=== PATIENT | female | born 1970 | race Caucasian/White ===

== ENCOUNTER 2023-03-17 09:01 | Outpatient (AMB) | payer OTHER, SELFPAY ==
--- NOTE | 2023-03-17 09:07 | MHC.OFFVIS ---
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 Patient reports history of hip and back pain for over a year and was seen by a chiropractor. She was also seen by PT who told her she had a twisted spine. States dislocated her knee as a child. Finds it difficult with kneeling or going down stairs. She feels her pain is beneath her kneecap. Her knee has locked in a bent position multiple times and is unable to straighten her leg or bear weight. Denies numbness or tingling. She has done physical therapy in the past which aggravated her pain. She has had injections in the past as well. The most recent injection gave her minimal relief. The patient has tried Tylenol and anti-inflammatory medicines which gave her only mild relief. She also reports intermittent low back pain which radiates down the posterior aspect of her right hip. She has recently returned to light exercise which has given her mild relief. 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 Physical Exam Vital Signs: BMI result Body Mass Index 34.8 Const Other: Well-nourished well-developed very friendly female awake alert and oriented x3 in no acute distress Extrem Other: Bilateral lower extremity examination shows good capillary refill, no skin lesions noted, normal sensation light touch Right knee examination shows a minimal effusion, minimal crepitus with range of motion, tenderness along her medial joint line, positive Alma's test, no instability Right hip examination shows full range of motion when compared to her left hip, mild tenderness to palpation over her bursa, no overlying skin lesions Low back examination shows right-sided paraspinal muscle tenderness, minimal discomfort with range of motion, negative straight leg raise test bilaterally Results Reviewed Results Reviewed: X-rays of the patient's right knee taken today show mild diffuse joint space narrowing, no acute bony abnormalities X-rays of the patient's lumbar spine taken today show mild diffuse degenerative disc disease, no acute bony abnormalities X-rays of the patient's right hip taken today show minimal diffuse joint space narrowing, no acute bony abnormalities Assessment & Plan Assessment & Plan (1) Right hip pain: Code(s): M25.551 - Pain in right hip (2) Right knee pain: Code(s): M25.561 - Pain in right knee Plan: Ms. Peraza presents with progressively worsening right knee pain and mechanical symptoms most likely due to a tear of her medial meniscus. Thus, I will send her for an MRI of her right knee for further evaluation. If she does have a significant meniscus tear I will recommend arthroscopic surgery to optimize her future functional level. The patient also has low back pain most likely due to degenerative disc disease as well as right hip pain due to greater trochanteric bursitis. At this point the patient's back and hip pains are tolerable to her. She will continue to exercise as tolerated. She will contact me prior to her follow-up appointment should her symptoms worsen in any way. I spent 22 minutes in reviewing the patient's records and imaging studies, seeing the patient and documenting in the medical record. (3) Low back pain: Code(s): M54.50 - Low back pain, unspecified Orders: Orders XR knee RT 3V Today M25.561 - Pain in right knee XR hip RT min 2V Today M25.551 - Pain in right hip XR lumbar spine 2-3V Today M54.50 - Low back pain, unspecified Coding Level of Care Code New Pt Level 2 (67612) Diagnoses Right hip pain M25.551 Right knee pain M25.561 Low back pain M54.50
[2023-03-17 09:20] VITALS: BMI 34.8
== END 2023-03-17 10:04 | disposition home or self-care (01) ==
PROVIDERS: Visit Provider Orthopaedic Surgery
DX: M25.551 Pain in right hip (principal); M25.561 Pain in right knee; M54.50 Low back pain, unspecified
CPT/HCPCS: 99202

== ENCOUNTER 2023-03-17 09:25 | Outpatient (REF) | payer OTHER, SELFPAY ==
--- NOTE | ~2023-03-17 | XR_ITS ---
EXAMINATION: XR HIP, RIGHT CLINICAL INFORMATION: Pain in right hip COMPARISON: None available. TECHNIQUE: Two views of the right hip. FINDINGS: No fracture. Alignment is anatomic. Hip joint space is maintained. Soft tissues are unremarkable. Incidental note of pelvic phleboliths. XR/XR hip RT min 2V IMPRESSION: Normal right hip.
--- NOTE | ~2023-03-17 | XR_ITS ---
EXAMINATION: XR KNEE, RIGHT CLINICAL INFORMATION: Right knee pain COMPARISON: None available. TECHNIQUE: Three views of the right knee. FINDINGS: No evidence for acute fracture or dislocation. There are prominent spurring changes of the femoral condyles and the tibial plateau. There is focally severe narrowing of the lateral patellofemoral joint space with prominent lateral patellar spurring. There are calcifications projecting near the tibial spines and near the lateral femoral condyle which may reflect loose bodies. No significant joint effusion. XR/XR knee RT 3V IMPRESSION: 1. No acute fracture or dislocation. 2. Degenerative changes as described. 3. Findings suggestive of loose bodies. No significant joint effusion. MRI examination may be helpful toward further clarification.
--- NOTE | ~2023-03-17 | XR_ITS ---
EXAMINATION: XR LUMBOSACRAL SPINE CLINICAL INFORMATION: Low back pain COMPARISON: None available. TECHNIQUE: Two views of the lumbosacral spine. FINDINGS: No acute lumbar compression fractures seen. Pedicles and transverse processes intact. Sacrum grossly unremarkable. Slight anterolisthesis noted L4-L5. There is slight disc space narrowing at L4-L5. Mild facet arthrosis observed. Small spondylitic changes at L2 and at lower thoracic levels. XR/XR lumbar spine 2-3V IMPRESSION: 1. No acute compression fracture. Slight disc space narrowing L4-L5. Slight anterolisthesis L4-L5. 2. Mild facet arthrosis.
== END 2023-03-17 09:26 | disposition home or self-care (01) ==
LOC: HO.HOSX 09:25
PROVIDERS: Visit Provider Orthopaedic Surgery
DX: M25.551 Pain in right hip (principal); M25.561 Pain in right knee; M54.50 Low back pain, unspecified
CPT/HCPCS: 72100; 73502; 73562

== ENCOUNTER 2023-06-18 09:46 | Outpatient (AMB) | payer OTHER, SELFPAY ==
--- NOTE | 2023-06-18 09:47 | MHC.OFFVIS ---
Intake Intake Visit Reasons: OV-right knee pain-follow up Intake Note: This is a 52 year old female who presents for follow up for her right knee and giving way. Patient states that her symptoms have gotten worse over the last year in spite of continued non operative treatments. She has done physical therapy exercises which aggravated her pain. She has also tried Tylenol and anti-inflammatory medicines which gave her minimal relief. She has had injections in the past which gave her no relief. She has been wearing a knee brace which was given to her by a friend which gives her mild relief. She states that her right knee will give out several times per day. 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 Physical Exam Const Other: Well-nourished well-developed very friendly female awake alert and oriented x3 in no acute distress Extrem Other: Bilateral lower extremity examination shows good capillary refill, no skin lesions noted, normal sensation light touch Right knee examination shows a minimal effusion, minimal crepitus with range of motion, tenderness along her medial joint line, positive Alma's test, no instability Results Reviewed Results Reviewed: Standing full weight-bearing x-rays of the patient's right knee show mild diffuse joint space narrowing, no acute bony abnormalities Assessment & Plan Assessment & Plan (1) Right knee pain: Code(s): M25.561 - Pain in right knee Plan: Ms. Peraza presents with right knee pain and mechanical symptoms most likely due to tearing of her medial meniscus. Thus, I will send the patient for an MRI of her right knee for further evaluation. I will see her back once the MRI is completed to discuss the findings and treatment options. Feel free to call me at any time should questions regarding her orthopedic management arise. I spent 22 minutes in reviewing the patient's records and imaging studies, seeing the patient and documenting in the medical record. Orders: Orders PT Evaluation and Treatment Today M76.31 - Iliotibial band syndrome, right leg, M76.32 - Iliotibial band syndrome, left leg MR knee RT wo con Today M25.561 - Pain in right knee Coding Level of Care Code Est Pt Level 2 (93970) Diagnoses Right knee pain M25.561
== END 2023-06-18 10:17 | disposition home or self-care (01) ==
PROVIDERS: Visit Provider Orthopaedic Surgery
DX: M25.561 Pain in right knee (principal)
CPT/HCPCS: 99212

== ENCOUNTER → 2023-06-18 09:46 | Outpatient (BNVA) | payer OTHER, SELFPAY | PROVIDERS: Visit Provider Orthopaedic Surgery ==

== ENCOUNTER 2023-07-30 17:47 | Outpatient (REF) | payer OTHER, SELFPAY ==
--- NOTE | ~2023-07-30 | MR_ITS ---
EXAMINATION: MR KNEE WITHOUT CONTRAST, RIGHT CLINICAL INFORMATION: Pain in the right knee. COMPARISON: X-rays of the right knee March 2023. TECHNIQUE: MRI of the knee without contrast was performed using routine sequences on a high-field scanner. FINDINGS: MENISCI: Medial Meniscus: Intact Lateral Meniscus: Intact LIGAMENTS: Cruciate: Intact Collateral: Intact EXTENSOR MECHANISM: Intact ARTICULAR CARTILAGE/BONE: Patellofemoral Compartment: There is diffuse high-grade cartilage loss involving almost the entire lateral facet and lateral aspect of the median ridge. Additional cartilage heterogeneity of the median ridge and medial facet of the patella. There is diffuse high-grade cartilage loss noted throughout the lateral trochlea extending into the sulcus. There is nonuniform up to high-grade cartilage loss in the medial trochlea. There are marginal osteophytes. There is subchondral cystic change throughout the areas of cartilage abnormality. Overall severe osteoarthritis. Medial Compartment: There are marginal osteophytes with minimal, if any, cartilage heterogeneity. Overall minimal arthrosis. Lateral Compartment: There is a focal 3 mm area of partial-thickness cartilage loss in the posterior weightbearing femoral articular cartilage. Overall mild arthrosis. JOINT FLUID AND BURSAE: There is a mild joint effusion and small Bryant's cyst. There is a loose body measuring up to 2 cm in the midline anterior recess. There is a loose body in the lateral suprapatellar recess measuring up to 1.5 cm. There is a loose body in the posterior recess midline measuring up to 1.5 cm. MR/MR knee RT wo con IMPRESSION: 1. Severe osteoarthritis of the patellofemoral compartment. 2. Minimal arthrosis of the medial compartment and mild arthrosis of the lateral compartment. 3. Joint effusion and loose bodies.
== END 2023-07-30 17:48 | disposition home or self-care (01) ==
LOC: HO.MRI 17:47
PROVIDERS: PCP Nurse Practitioner Primary Care; Visit Provider Orthopaedic Surgery
DX: M25.561 Pain in right knee (principal)
CPT/HCPCS: 73721

== ENCOUNTER 2023-08-13 15:06 | Outpatient (AMB) | payer OTHER, SELFPAY ==
--- NOTE | 2023-08-13 15:08 | MHC.OFFVIS ---
Intake Intake Visit Reasons: OV-MRI review right knee Intake Note: Berta is a 53 yr old, here to follow up on MRI on her right knee. The patient states that her right knee will lock at times. She denies any fevers or chills. She has tried wearing a knee brace in the past which was given to her by a friend. 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 Physical Exam Const Other: Well-nourished well-developed very friendly female awake alert and oriented x3 in no acute distress Extrem Other: Right knee examination shows a minimal effusion, mild crepitus with range of motion, negative Alma's test, no instability Results Reviewed Results Reviewed: MRI of the patient's right knee shows no obvious meniscus tearing, loose bodies along the lateral suprapatellar recess as well as along the insertion of the anterior cruciate ligament, diffuse high-grade cartilage loss along the undersurface of the patella Assessment & Plan Assessment & Plan (1) Loose body of right knee: Code(s): M23.41 - Loose body in knee, right knee Plan Ms. Peraza presents with right knee pain and mechanical symptoms due to degenerative joint disease as well as the presence of 2 loose bodies. I had a lengthy discussion with the patient regarding the treatment options. At this point the patient's symptoms are tolerable to her. She will continue with her activity modifications. We did discuss the potential benefits of arthroscopic surgery with possible loose body excision versus right total knee replacement surgery. The patient understands that removal of 1 or both of the loose bodies may help with her mechanical symptoms but will not significantly improve the discomfort from the degenerative joint disease. The patient wishes to hold off on surgery for now. She will follow up with me on an as-needed basis. Feel free to call me at any time should questions regarding her orthopedic management arise. I spent 20 minutes in reviewing the patient's records and imaging studies, seeing the patient and documenting in the medical record. Coding Level of Care Code Est Pt Level 2 (32458) Diagnoses Loose body of right knee M23.41
== END 2023-08-13 16:08 | disposition home or self-care (01) ==
PROVIDERS: PCP Nurse Practitioner Primary Care; Visit Provider Orthopaedic Surgery
DX: M23.41 Loose body in knee, right knee (principal)
CPT/HCPCS: 99213

== ENCOUNTER → 2023-08-13 15:06 | Outpatient (BNVA) | payer OTHER, SELFPAY | PROVIDERS: PCP Nurse Practitioner Primary Care; Visit Provider Orthopaedic Surgery ==